=== PATIENT | female | born 1990 | race Hispanic/Latino ===

== ENCOUNTER 2019-06-23 02:27 | Emergency (ER) | payer SELFPAY ==
[~2019-06-23] VITALS: Ht 152.4 cm; Wt 65.8 kg
[2019-06-23] MEDS ORDERED: ONDANSETRON HCL INJ 2MG/ML 2ML 2 MG/ML VIAL IV STA (02:44)
[2019-06-23] MEDS ORDERED: SODIUM CHLORIDE 0.9% 1000ML 1,000 ML IV STA (02:44)
[2019-06-23 03:15] LABS: BILIRUBIN,URINE NEGATIVE (NEGATIVE); CLARITY,URINE CLEAR (CLEAR); COLOR,URINE YELLOW (YELLOW); KETONES,URINE NEGATIVE (NEGATIVE); LEUKOCYTE ESTERASE ,URINE SMALL (NEGATIVE); NITRITE,URINE NEGATIVE (NEGATIVE); PROTEIN,URINE DIPSTICK NEGATIVE (NEGATIVE); URINE UROBILINOGEN 1 mg/dL (0.2 - 1)
[2019-06-23 03:19] LABS: PREGNANCY TEST, URINE POSITIVE (NEGATIVE)
[2019-06-23 03:33] LABS: BACTERIA,URINE MODERATE /HPF; EPITHELIAL CELLS,URINE MANY /LPF
[2019-06-23 03:36] LABS: BASOPHILS % 0.3 % (0.0-1.0); EOSINOPHILS % 0.3 % (0.0-6.0); HEMATOCRIT 35.8 % (34.2-44.1); LYMPHOCYTES # (AUTO) 0.7 (1.0-3.2); LYMPHOCYTES % 6.2 % (18.0-39.1); MEAN CORPUSCULAR HEMOGLOBIN 29.9 pg (28-32); MEAN CORPUSCULAR HGB CONC 33.5 g/dL (31-35); MEAN CORPUSCULAR VOLUME 89.3 fL (81-99); MONOCYTES # (AUTO) 0.8 (0.2-0.8); MONOCYTES % 7.1 % (4.4-11.3); NEUTROPHILS % 85.5 % (38.7-80.0); PLATELET COUNT 201 x10e3/uL (140-360); RED BLOOD COUNT 4.01 x10e6/uL (3.6-5.1); RED CELL DISTRIBUTION WIDTH 13.2 % (11.7-14.4)
[2019-06-23 03:48] LABS: INR 1.2; PROTHROMBIN TIME 15.8 seconds (11.9-14.5)
[2019-06-23 03:49] LABS: PARTIAL THROMBOPLASTIN TIME 30.3 seconds (23.8-35.5)
[2019-06-23 03:58] LABS: ALANINE AMINOTRANSFERASE 10 IU/L (0-55); ALBUMIN 3.7 g/dL (3.5-5.0); ALBUMIN/GLOBULIN RATIO 1.2 (0.8-2.0); ALKALINE PHOSPHATASE 58 IU/L (40-150); AMYLASE 22 U/L (25-125); ANION GAP 11.5 mmol/L (8-16); BLOOD UREA NITROGEN 10 mg/dL (7-26); BUN/CREATININE RATIO 14 (6-25); CALCIUM 9.4 mg/dL (8.4-10.2); CARBON DIOXIDE 24 mmol/L (22-29); CHLORIDE 102 mmol/L (98-107); CREATINE KINASE 50 IU/L (29-168); CREATININE, SERUM 0.71 mg/dL (0.57-1.11); EST GLOMERULAR FILTRATION RATE > 60 ML/MIN (60-); GLUCOSE 138 mg/dL (74-118); POTASSIUM 3.5 mmol/L (3.5-5.1); SODIUM 134 mmol/L (136-145)
[2019-06-23 04:14] LABS: LIPASE < 4 U/L (8-78)
--- NOTE | 2019-06-23 04:23 | Diagnostic Imaging Report ---
EXAM: Right upper quadrant abdominal ultrasound INDICATION: Abdominal pain. COMPARISON: None. TECHNIQUE: Transverse and longitudinal images of the right upper quadrant abdomen were obtained FINDINGS: Liver: Size: 13.5 cm in the right midclavicular line, normal Appearance: Normal echogenicity, smooth contour Mass: No focal masses Gallbladder: No distention, pericholecystic fluid, stone, or reported sonographic Steward's sign. Minimal gallbladder sludge. Gallbladder wall measures 0.28 cm, at the upper limits of normal. Partially decompressed. Bile Ducts: Intrahepatic Ducts: No dilatation Extrahepatic Ducts: Common bile duct measures 0.3 cm, no dilatation Pancreas: Incompletely evaluated. Kidney: The right kidney measures 10.8 cm without evidence of hydronephrosis or stone. Vessels: Aorta: Visualized portions are normal Inferior Vena Cava: Visualized portions are normal Main Portal Vein: 1.1 cm, normal size with hepatopetal flow. Free Fluid: No evidence of ascites. IMPRESSION: Minimal gallbladder sludge without sonographic evidence of cholelithiasis or cholecystitis. Signed by: Dr. Jassi Medina MD on 06/23/2019 4:19 AM
[2019-06-23 04:26] LABS: HCG,QUANTITATIVE 51696.07 mIU/mL (0-10)
--- NOTE | 2019-06-23 04:26 | Diagnostic Imaging Report ---
Pelvic OB ultrasound -1st trimester. History: Evaluation of . Abdominal pain. Quantitative Beta-hCG not provided. Positive test. Prior imaging: None. Findings: There is an intrauterine . A gestational sac is identified, measuring 2.5 x 1.8 x 2.7 cm. There is a yolk sac measuring 0.7 cm. The crown-rump length is 1.0 cm. A heart rate is measured at 171 BPM. The uterus measures 8.5 x 4.9 x 5.6 cm. The right ovary measures 2.9 x 2.3 x 2.7 cm and the left ovary measures 1.9 x 1.6 x 1.6 cm, unremarkable in appearance. No pelvic fluid identified. IMPRESSION: Single viable intrauterine . Estimated gestational age of 7 weeks, 2 days. Recommend follow-up beta-HCG and pelvic ultrasound per protocol. Signed by: Dr. Jassi Medina MD on 06/23/2019 4:23 AM
[2019-06-23] MEDS ORDERED: SODIUM CHLORIDE 0.9% 1000ML 1,000 ML IV SCH (05:00)
[2019-06-23] MEDS ORDERED: ACETAMINOPHEN 325 MG TAB PO ONE (05:00)
[2019-06-23] MEDS ORDERED: CEFTRIAXONE SOD 1 GM/NS 50 ML 50 ML IV ONE (06:00)
[2019-06-23] MEDS ORDERED: DICYCLOMINE HCL 20 MG/2 ML VIAL IM ONE (06:00)
[2019-06-23 06:30] VITALS: BP 123/77
== END 2019-06-23 06:35 | disposition home or self-care (01) ==
LOC: ER 02:27
DX: O23.11 Infections of bladder in pregnancy, first trimester (principal); R50.9 Fever, unspecified; R31.9 Hematuria, unspecified; J11.1 Influenza due to unidentified influenza virus with other respiratory manifestations; R11.2 Nausea with vomiting, unspecified
CPT/HCPCS: 36415; 76705; 76817; 80053; 81001; 81025; 82150; 82550; 82553; 83605; 83690; 84484; 84702; 85025; 85610; 85730; 86900; 87040; 87086; 87186; 87400; 99284; J0500; J0696; J2405; J7030

== ENCOUNTER 2019-07-21 13:12 | Emergency (ER) | payer SELFPAY ==
[~2019-07-21] VITALS: Ht 152.4 cm; Wt 65.8 kg
--- OUTSIDE RECORDS SUMMARY | 2019-07-21 13:14 | XMS REPORT ---
Author Author [facility] Address Unknown Phone Unavailable Care Team Providers Care Pouch Maker Name Role Phone Donato THAPA Unavailable Unavailable Payers Payer Name Policy Type Policy Number Effective Date Expiration Date Problems This patient has no known problems. Allergies, Adverse Reactions, Alerts Allergy Name Allergy Type Status Severity Reaction(s) Onset Date Inactive Date Treating Clinician Comments No Known Allergies DA Active U 2019-07-20 00:00:00 Medications This patient has no known medications. Results Test Description Test Time Test Comments Text Results Atomic Results Result Comments BASIC METABOLIC PANEL 2019-07-21 00:18:00 SODIUM (test code=NA) 142 mmol/L 136-145 POTASSIUM (test code=K) 3.7 mmol/L 3.5-5.1 CHLORIDE (test code=CL) 108.0 mmol/L 98-107 CARBON DIOXIDE (test code=CO2) 27.0 mmol/L 21-32 ANION GAP (test code=GAP) 10.7 10-20 GLUCOSE (test code=GLU) 108 mg/dL 74-106 BLOOD UREA NITROGEN (test code=BUN) 11 mg/dL 7-18 GLOMERULAR FILTRATION RATE (test code=GFR) > 60 mL/min >=60 Estimated GFR by using Modified MDRD formula.Chronic kidney disease is defined as either kidney damageor GFR <60 mL/min/1.73 m2 for >3 months. CREATININE (test code=CREAT) 0.60 mg/dL 0.55-1.02 Note change in reference range due to change in reagent. BUN/CREATININE RATIO (test code=BUN/CREA) 17.6 10-20 CALCIUM (test code=CA) 8.4 mg/dL 8.5-10.1 HCG SERUM [id number] 00:18:00* Test Item Value Reference Range Comments HCG SERUM BETA (test code=HCG) 2497.0 mIU/mL 0-3 Interfering substances present in the serum of somepatients may cause a false-positive result in this assay.Questionable elevations in serum hCG should be confirmedwith a urine hCG. Suspected Trophoblastic Neoplasms shouldnot be diagnosed based on serun hCG/beta hCG alone. Theymust be confirmed by clinical history and tissue diagnosis.INTERPRETATION:B-HCG LEVELS <5 SHOULD BE CONSIDERED "NEGATIVE." *WHEN BODERLINE RESULTS ARE ENCOUNTERED,PATIENT SAMPLESSHOULD BE REDRAWN 48 HOURS. 0-1 WEEKS AFTER CONCEPTION 5-50 MIU/ML1-2 WEEKS AFTER CONCEPTION 50-500 MIU/ML2-3 WEEKS AFTER CONCEPTION 100 -5,000 MIU/ML3-4 WEEKS AFTER CONCEPTION 500-10,000 MIU/ML4-5 WEEKS AFTER CONCEPTION 1000 -50,000 MIU/ML5-6 WEEKS AFTER CONCEPTION 10,000-100,000 MIU/ML6-8 WEEKS AFTER CONCEPTION 15,000- 200,000 MIU/ML2-3 MONTHS AFTER CONCEPTION 10,000-100,000 MIU/ML BASIC METABOLIC [id number] 23:55:00* Test Item Value Reference Range Comments SODIUM (test code=NA) 142 mmol/L 136-145 POTASSIUM (test code=K) 3.7 mmol/L 3.5-5.1 CHLORIDE (test code=CL) 108.0 mmol/L 98-107 CARBON DIOXIDE (test code=CO2) mmol/L 21-32 ANION GAP (test code=GAP) 10-20 GLUCOSE (test code=GLU) mg/dL 74-106 BLOOD UREA NITROGEN (test code=BUN) mg/dL 7-18 GLOMERULAR FILTRATION RATE (test code=GFR) mL/min >=60 CREATININE (test code=CREAT) mg/dL 0.55-1.02 BUN/CREATININE RATIO (test code=BUN/CREA) 10-20 CALCIUM (test code=CA) mg/dL 8.5-10.1 HCG SERUM [id number] 23:55:00* Test Item Value Reference Range Comments HCG SERUM BETA (test code=HCG) mIU/mL 0-3 CBC W/O [id number] 23:43:00* Test Item Value Reference Range Comments WHITE BLOOD CELL (test code=WBC) K/mm3 4.5-12.5 RED BLOOD CELL (test code=RBC) mill/mm3 3.7-5.2 HEMOGLOBIN (test code=HGB) gram/dL 11.5-15.5 HEMATOCRIT (test code=HCT) 36.0 % 36.0-46.0 MEAN CELL VOLUME (test code=MCV) fL 80-98 MEAN CELL HGB (test code=MCH) picogram 27.0-33.0 MEAN CELL HGB CONCETRATION (test code=MCHC) gram/dL 33.0-36.0 RED CELL DISTRIBUTION WIDTH (test code=RDW) % 11.6-16.2 PLATELET COUNT (test code=PLT) K/mm3 150-450 MEAN PLATELET VOLUME (test code=MPV) fL 6.7-11.0 CBC W/O [id number] 23:43:00* Test Item Value Reference Range Comments WHITE BLOOD CELL (test code=WBC) 12.1 K/mm3 4.5-12.5 RED BLOOD CELL (test code=RBC) 3.76 mill/mm3 3.7-5.2 HEMOGLOBIN (test code=HGB) 11.3 gram/dL 11.5-15.5 HEMATOCRIT (test code=HCT) 36.0 % 36.0-46.0 MEAN CELL VOLUME (test code=MCV) 95.7 fL 80-98 MEAN CELL HGB (test code=MCH) 30.1 picogram 27.0-33.0 MEAN CELL HGB CONCETRATION (test code=MCHC) 31.4 gram/dL 33.0-36.0 RED CELL DISTRIBUTION WIDTH (test code=RDW) 13.5 % 11.6-16.2 PLATELET COUNT (test code=PLT) 204 K/mm3 150-450 MEAN PLATELET VOLUME (test code=MPV) 12.2 fL 6.7-11.0 - DUP AB/PEL/SC [id number] 22:59:00 Name: INDRA ROSALES [facility] : 1990 Age/S: 29 / F [address] Unit #: [id number] Loc: [place] [address] Phys: Treasure Bush [employer] Acct: [id number] Dis Date: Status: REG ER PHONE #: [phone] Exam Date: 07/20/20192255 FAX #: [phone] Reason: PELVIC PAIN EXAMS: CPT CODE: [id number] DUP AB/PEL/SC COMP 01214 HISTORY: Pelvic pain. COMPARISON: None available. Transabdominal and transvaginal (for better endometrial and ovarian evaluation) pelvic ultrasound with color and Doppler flow and grayscale imaging. Location: [facility]. Anteverted uterus measured 10 x 5.5 x 7.4 cm. Intrauterine gestational sac with pole and yolk sac. Cardiac activity not documented. Mean sac diameter 4 cm and [place]-rump length of 2.4 cm would equal 9 weeks 2 days +/- 1 week. This is suggestive of intrauterine demise. DENZEL of February 20, 2020. DENZEL by outside ultrasound of February 06, 2020. Color and Doppler flow with normal spectral waveform. Right ovary measured 3.2 x 1.6 x 2.5 cm. Left ovary measured 2.7 x 1.1 x 2 cm. IMPRESSION: Intrauterine demise with no cardiac activity documented at 9 weeks 2 days +/- 1 week. No subchorionic hemorrhage. DENZEL of February 20, 2020. Color Doppler flow in either ovary with normal spectral waveform. at 2709 Reported and signed by: Dennys Llanes M.D. CC: Treasure Bush NP Technologist: JAHAIRA NEWSOME Trnhib Date/Time: 07/20/2019 (2258) [email or web address] Orig Print D/T: S: 07/20/2019 (9742) Probe: PAGE 1 Signed Report - US PREG VT [id number] 22:59:00 Name: INDRA ROSALES [facility] : 1990 Age/S: 29 / F [address] Unit #: [id number] Loc: [place] [address] Phys: Treasure Bush [employer] Acct: [id number] Dis Date: Status: REG ER PHONE #: [phone] Exam Date: 07/20/20192255 FAX #: [phone] Reason: PELVIC PAIN EXAMS: CPT CODE: [id number] US PREG UT TRANSVAGINAL 88873 HISTORY: Pelvic pain. COMPARISON: None available. Transabdominal and transvaginal (for better endometrial and ovarian evaluation) pelvic ultrasound with color and Doppler flow and grayscale imaging. Location: TH. Anteverted uterus measured 10 x 5.5 x 7.4 cm. Intrauterine gestational sac with pole and yolk sac. Cardiac activity not documented. Mean sac diameter 4 cm and [place]-rump length of 2.4 cm would equal 9 weeks 2 days +/- 1 week. This is suggestive of intrauterine demise. DENZEL of February 20, 2020. DENZEL by outside ultrasound of February 06, 2020. Color and Doppler flow with normal spectral waveform. Right ovary measured 3.2 x 1.6 x 2.5 cm. Left ovary measured 2.7 x 1.1 x 2 cm. IMPRESSION: Intrauterine demise with no cardiac activity documented at 9 weeks 2 days +/- 1 week. No subchorionic hemorrhage. DENZEL of February 20, 2020. Color Doppler flow in either ovary with normal spectral waveform. at 8429 Reported and signed by: Dennys Llanes M.D. CC: Treasure Bush NP Technologist: JAHAIRA NEWSOME Trnscb Date/Time: 07/20/2019 (2258) [email or web address] Orig Print D/T: S: 07/20/2019 (1864) Probe: [id number] PAGE 1 Signed Report - US PREG 1ST [id number] 22:59:00 Name: MARTÍNEZGENET MAHANINDRA [facility] : 1990 Age/S: 29 / F [address] Unit #: [id number] Loc: [place] [address] Phys: Omi Bush [employer] Acct: [id number] Di s Date: Status: REG ER PHONE #: [phone] Exam Date: 07/20/20192255 FAX #: Reason: VAGINAL BLEEDING/PELVIC PAIN EXAMS: CPT CODE: [id number] US PREG 1ST T RIMTR [id number] HISTORY: Pelvic pain. COMPARISON: None available. Transabdominal and transvag inal (for better endometrial and ovarian evaluation) pelvic ultrasound wit h color and Doppler flow and grayscale imaging. Location: [facility] . Anteverted uterus measured 10 x 5.5 x 7.4 cm. Intr auterine gestational sac with pole and yolk sac. Cardiac activity n ot documented. Mean sac diameter 4 cm and [place]-rump length of 2.4 cm wou ld equal 9 weeks 2 days +/- 1 week. This is suggestive of intrauterine fe jose demise. DENZEL of February 20, 2020. DENZEL by outside ultrasound of February 05. Color and Doppler flow with normal spectral waveform. Right ovary measured 3.2 x 1.6 x 2.5 cm. Left ovary measured 2.7 x 1.1 x 2 cm. IMPRESSION: Intrauterine demise with no cardiac activity documented at 9 weeks 2 days +/- 1 week. No subchorion ic hemorrhage. DENZEL of February 20, 2020. Color Doppler flow in either ovary with normal spectral waveform. at 8728 Reported and signed by: Dennys Llanes M.D. CC: Treasure Bush NP Technologist: JAHAIRA NEWSOME Trnscb Date/Time: 07/20/2019 (2258) [email or web address] Orig Print D/T: S: 07/20/2019 (5289) Probe: PAGE 1 Signed Report URINALYSIS COMPLETE 2019-07-20 22:50:00* Test Item Value Reference Range Comments UA COLOR (test code=COLU) COLORLESS YELLOW UA APPEARANCE (test code=APPU) CLEAR CLEAR UA GLUCOSE DIPSTICK (test code=DGLUU) NEGATIVE mg/dL NEGATIVE UA BILIRUBIN DIPSTICK (test code=BILU) NEGATIVE mg/dL NEGATIVE UA KETONE DIPSTICK (test code=KETU) NEGATIVE mg/dL NEGATIVE UA SPECIFIC GRAVITY (test code=SGU) 1.004 1.001-1.035 UA BLOOD DIPSTICK (test code=XAVI) Negative mg/dL NEGATIVE UA PH DIPSTICK (test code=JOSE L) 6.5 5.0-8.0 UA PROTEIN DIPSTICK (test code=PROU) NEGATIVE mg/dL NEGATIVE UA UROBILINIOGEN DIPSTICK (test code=URO) Normal mg/dL NEGATIVE UA NITRITE DIPSTICK (test code=JESS) NEGATIVE NEGATIVE UA LEUKOCYTE ESTERASE W REFLEX (test code=LEUUR) NEGATIVE Jason/uL NEGATIVE UA WBC (test code=WBCU) per HPF 0-5 UA RBC (test code=RBCU) per HPF 0-5 UA EPITHELIAL CELLS (test code=EPIU) per HPF Few UA BACTERIA (test code=BACU) per HPF NONE Urine Source? Clean CatchURINALYSIS [id number] 22:50:00* Test Item Value Reference Range Comments UA COLOR (test code=COLU) COLORLESS YELLOW UA APPEARANCE (test code=APPU) CLEAR CLEAR UA GLUCOSE DIPSTICK (test code=DGLUU) NEGATIVE mg/dL NEGATIVE UA BILIRUBIN DIPSTICK (test code=BILU) NEGATIVE mg/dL NEGATIVE UA KETONE DIPSTICK (test code=KETU) NEGATIVE mg/dL NEGATIVE UA SPECIFIC GRAVITY (test code=SGU) 1.004 1.001-1.035 UA BLOOD DIPSTICK (test code=XAVI) Negative mg/dL NEGATIVE UA PH DIPSTICK (test code=JOSE L) 6.5 5.0-8.0 UA PROTEIN DIPSTICK (test code=PROU) NEGATIVE mg/dL NEGATIVE UA UROBILINIOGEN DIPSTICK (test code=URO) Normal mg/dL NEGATIVE UA NITRITE DIPSTICK (test code=JESS) NEGATIVE NEGATIVE UA LEUKOCYTE ESTERASE W REFLEX (test code=LEUUR) NEGATIVE Jason/uL NEGATIVE UA WBC (test code=WBCU) 0-5 per HPF 0-5 UA RBC (test code=RBCU) 0-2 #/HPF 0-5 UA EPITHELIAL CELLS (test code=EPIU) FEW per HPF FEW UA BACTERIA (test code=BACU) FEW #/HPF NONE UA MUCUS (test code=MUCU) FEW #/LPF FEW Urine Source? Clean CatchUS OB TRANSVAG 1ST TRI [id number] 04:20:00 [facility] [address] [address] Patient Name: INDRA MAHAN MR #: [id number] : 1990 Age/Sex: 29/F Req #: [id number] Adm Physician: Ordered by: YOHANNES THAPA MD Report #: [id number] Location: ER Room/Bed: Procedure: [id number] US/US OB TRANSVAG 1ST TRI SINGLE Exam Date: 06/23/19 Exam Time: 0345 REPORT STATUS: Signed Pelvic OB ultrasound -1st trimester. History: Evaluation of . Abdominal pain. Quantitative Beta-hCG not provided. Positive test. Prior imaging: None. Findings: There is an intrauterine . A gestational sac is identified, measuring 2.5 x 1.8 x 2.7 cm. There is a yolk sac measuring 0.7 cm. The crown-rump length is 1.0 cm. A heart rate is measure d at 171 BPM. The uterus measures 8.5 x 4.9 x 5.6 cm. The right ovary measu res 2.9 x 2.3 x 2.7 cm and the left ovary measures 1.9 x 1.6 x 1.6 cm, unremar kable in appearance. No pelvic fluid identified. IMPRESSION: Sing le viable intrauterine . Estimated gestational age of 7 weeks, 2 days . Recommend follow-up beta-HCG and pelvic ultrasound per protocol. Signed b y: Dr. Abraham Pavon MD on 06/23/2019 4:23 AM Dictated By: ABRAHAM PAVON MD E lectronically Signed By: ABRAHAM PAVON MD on 06/23/19422 Transcribed By: SATISH on 06/23/19422 COPY TO: YOHANNES THAPA MD GALLBLADDER 2019-06-23 04:16:00 [address] [address] Patient Name: INDRA MAHAN MR #: [id number] : 1990 Age/Sex: 29/F Req #: [id number] Adm Physician: Ordered by: YOHANNES THAPA MD Report #: [id number] Location: ER Room/Bed: Procedure: [id number] US/US GALLBLADDER Exam Date: 06/23/19 Exam Time: 033 REPORT STATUS: Signed EXAM: Right u pper quadrant abdominal ultrasound INDICATION: Abdominal pain. COMPARISON : None. TECHNIQUE: Transverse and longitudinal images of the right upper [facility] abdomen were obtained FINDINGS: Liver: Size: 13.5 cm in the right midclavicular line, normal Appearance: Normal echogenicity, smooth cont our Mass: No focal masses Gallbladder: No distention, pericholecystic flu id, stone, or reported sonographic Steward's sign. Minimal gallbladder sludge. Gallbladder wall measures 0.28 cm, at the upper limits of normal. Partially de compressed. Bile Ducts: Intrahepatic Ducts: No dilatation Extrahepatic Ducts: Common bile duct measures 0.3 cm, no dilatation Pancreas: Incomple tely evaluated. Kidney: The right kidney measures 10.8 cm without evidence of hydronephrosis or stone. Vessels: Aorta: Visualized portions are no rmal Inferior Vena Cava: Visualized portions are normal Main Portal Vein: 1. 1 cm, normal size with hepatopetal flow. Free Fluid: No evidence of ascit es. IMPRESSION: Minimal gallbladder sludge without sonographic evidence o f cholelithiasis or cholecystitis. Signed by: Dr. Abraham Pavon MD on 06/23 4:19 AM Dictated By: ABRAHAM PAVON MD 8 Transcribed By: SATISH on 06/23/19418 COPY T O: YOHANNES THAPA MD
[2019-07-21] MEDS ORDERED: SODIUM CHLORIDE 0.9% 1000ML 1,000 ML IV STA (13:36)
--- NOTE | 2019-07-21 14:24 | Diagnostic Imaging Report ---
Pelvic ultrasound transvaginal uterus CPT code: 78763 History: Lower abdominal pain, spotting, Comparison: Pelvic ultrasound 06/23/2019. Estimated gestational age at that time 7 weeks 2 days Findings: Images were obtained with the endovaginal probe. The uterus is anteverted. It measures 9.6 cm in length The endometrium is prolific. There is a well-defined intrauterine gestational sac. A single collapsed yolk sac and embryo are identified. The crown rump length is 2.4 cm. No cardiac activity is identified on M-mode Doppler. There is no subchorionic hemorrhage. No pelvic free fluid. The right ovary measures 1.9 x 2.1 x 3.0 cm. The echotexture is normal. No mass The left ovary measures 1.4 x 1.7 x 3.0 cm. The echotexture is normal. No mass IMPRESSION: Single intrauterine with absence of cardiac activity consistent with embryonic demise. Estimated gestational age by ultrasound is 9 weeks 1 day Signed by: Dr. Esther Borja MD on 07/21/2019 2:21 PM
[2019-07-21 14:57] LABS: CLARITY,URINE CLEAR (CLEAR); COLOR,URINE YELLOW (YELLOW); LEUKOCYTE ESTERASE ,URINE NEGATIVE (NEGATIVE); NITRITE,URINE NEGATIVE (NEGATIVE); PROTEIN,URINE DIPSTICK NEGATIVE (NEGATIVE)
[2019-07-21 14:58] LABS: BILIRUBIN,URINE NEGATIVE (NEGATIVE); KETONES,URINE NEGATIVE (NEGATIVE); URINE UROBILINOGEN 0.2 mg/dL (0.2 - 1)
[2019-07-21 15:00] LABS: PREGNANCY TEST, URINE POSITIVE (NEGATIVE)
--- NOTE | 2019-07-21 15:01 | NUR ---
NO ANSWER AT THIS TIME
[2019-07-21 15:05] LABS: BACTERIA,URINE FEW /HPF; EPITHELIAL CELLS,URINE FEW /LPF; RBC,URINE 0-5 /HPF (0-5); WBC,URINE (MAN) 0-5 /HPF (0-5)
== END 2019-07-21 14:35 | disposition left against medical advice (07) ==
LOC: ER 13:12
DX: O20.9 Hemorrhage in early pregnancy, unspecified (principal); R10.2 Pelvic and perineal pain
CPT/HCPCS: 76817; 81001; 81025; 87086

== ENCOUNTER 2020-09-27 12:45 | Emergency (ER) | payer SELFPAY ==
[~2020-09-27] VITALS: Ht 152.4 cm; Wt 65.8 kg
[2020-09-27] MEDS ORDERED: CEFTRIAXONE SOD 1 GM VIAL ONE (13:27)
[2020-09-27] MEDS ORDERED: SODIUM CHLORIDE 0.9% 1000ML 1,000 ML ONE (13:27)
[2020-09-27] MEDS ORDERED: CEFTRIAXONE SOD 1 GM/NS 50 ML 50 ML IV ONE (13:30)
[2020-09-27] MEDS ORDERED: SODIUM CHLORIDE 0.9% 1000ML 1,000 ML IV SCH (13:30)
[2020-09-27] MEDS ORDERED: ZITHROMAX250 MG PO (15:47)
[2020-09-27] MEDS ORDERED: CEFDINIR300 MG PO (15:48)
== END 2020-09-27 16:06 | disposition home or self-care (01) ==
LOC: FSED 13:15
DX: O26.91 Pregnancy related conditions, unspecified, first trimester (principal); R10.30 Lower abdominal pain, unspecified; R19.7 Diarrhea, unspecified
CPT/HCPCS: 81003; 81025; 87086; 93976; 99284; J0696; J7030